=== PATIENT | male | born 1995 | race African-American/Black ===

== ENCOUNTER 2019-01-24 19:24 | Inpatient (IN) | payer OTHER, SELFPAY ==
[~2019-01-24 19:24] MED LIST: ISOVUE-370 76%-LOCM 1 ML ONE
[2019-01-24 20:49] LABS: #Basophils 0.1 thou/uL (0.0-0.2); #Eosinphils 0.1 thou/uL (0.0-0.7); #Lymphocytes 2.4 thou/uL (1.20-3.40); #Monocytes 0.6 thou/uL (0.11-0.59); #Neutrophils 4.2 thou/uL (1.40-6.50); %Basophils 1.4 % (0.0-1.0); %Eosinophils 0.9 % (0.0-10.0); %Monocytes 7.7 % (0.0-10.0); Hemoglobin 14.6 g/dL (14.0-18.0); Mean Corpuscular HGB CONC 32.8 g/dL (32.0-36.0); Mean Platelet Volume 8.7 fL (7.4-10.4); Platelet Count 169 thou/uL (130-400); RBC Distribution Width 12.7 % (11.5-14.5); Red Blood Cell (RBC) Count 4.43 mill/uL (4.70-6.10); White Blood Cell (WBC) Count 7.4 thou/uL (4.8-10.8)
--- NOTE | 2019-01-24 20:52 | RAD ---
EXAM: Single view of the chest HISTORY: Shortness of breath COMPARISON: None FINDINGS: Single view of the chest shows an enlarged cardiomediastinal silhouette. There is no eviden ce of consolidation, mass, or pleural effusion. The bones are unremarkable. IMPRESSION: Cardiomegaly
[2019-01-24 21:17] LABS: ALT (SGPT) 34 U/L (8-55); AST (SGOT) 28 U/L (5-34); Albumin 3.7 g/dL (3.5-5.0); Alkaline Phosphatase 59 U/L (40-110); Anion Gap 13 mmol/L (10-20); BUN (Urea Nitrogen) 15 mg/dL (8.9-20.6); Bilirubin, Total 4.4 mg/dL (0.2-1.2); Calc. Creatinine Clearance 0 mL/min (70-130); Calcium 9.1 mg/dL (7.8-10.44); Carbon Dioxide 27 mmol/L (22-29); Chloride 104 mmol/L (98-107); Estimated GFR-MDRD 74; Globulin 2.7 g/dL (2.4-3.5); Glucose 105 mg/dL (70-105); Potassium 3.8 mmol/L (3.5-5.1); Protein, Total 6.4 g/dL (6.0-8.3); Sodium 140 mmol/L (136-145)
[2019-01-24 21:37] LABS: CKMB 1.9 ng/mL (0-6.6)
[2019-01-24] MEDS ORDERED: Furosemide 40 MG/4 ML VIAL ONE (21:41)
--- NOTE | 2019-01-24 22:35 | CT ---
EXAM: CTA of the chest HISTORY: Shortness of breath COMPARISON: None TECHNIQUE: Multiple contiguous axial images were obtained a CTA of the chest with contrast per pulmon zack embolism protocol. 3-D oblique MIP reformats and direct coronal reformats were performed. FINDINGS: This exam is limited secondary to poor [id number] ratio from the patient's large body habitus. HEART: Normal in size without focal cardiac abnormality. PULMONARY ARTERIES: Normal in caliber without filling defects to suggest pulmonary emboli. MEDIASTINUM: No hilar or mediastinal lymphadenopathy. LUNGS: No focal infiltrates or masses. PLEURAL SPACE: Small right pleural effusion. No pneumothorax. CHEST WALL SOFT TISSUES: Unremarkable VISUALIZED OSSEOUS STRUCTURES: Unremarkable VISUALIZED SUBDIAPHRAGMATIC STRUCTURES: Unremarkable IMPRESSION: 1. No evidence of pulmonary thromboembolism 2. Small right pleural effusion
[2019-01-25 00:48] LABS: CKMB 1.5 ng/mL (0-6.6)
[2019-01-25] MEDS ORDERED: Nitroglycerin 2% Ointment 1 INCH/1 GM Packet ONE (00:48)
[2019-01-25] MEDS ORDERED: Nitroglycerin 2% Ointment 1 INCH/1 GM Packet TOP SCH (01:00)
[2019-01-25] MEDS ORDERED: Aspirin 325 MG TAB ONE (01:16)
[2019-01-25 02:53] VITALS: BMI 70.4
[2019-01-25 03:35] LABS: Troponin I 0.141 ng/mL (< 0.028)
[2019-01-25 07:16] LABS: ALT (SGPT) 25 U/L (8-55); AST (SGOT) 18 U/L (5-34); Albumin 3.3 g/dL (3.5-5.0); Alkaline Phosphatase 50 U/L (40-110); Anion Gap 11 mmol/L (10-20); BUN (Urea Nitrogen) 14 mg/dL (8.9-20.6); Bilirubin, Total 3.7 mg/dL (0.2-1.2); Calc. Creatinine Clearance 244 mL/min (70-130); Calcium 8.9 mg/dL (7.8-10.44); Carbon Dioxide 33 mmol/L (22-29); Chloride 103 mmol/L (98-107); Estimated GFR-MDRD Greater than 90; Globulin 2.2 g/dL (2.4-3.5); Glucose 87 mg/dL (70-105); Potassium 3.5 mmol/L (3.5-5.1); Protein, Total 5.5 g/dL (6.0-8.3); Sodium 143 mmol/L (136-145)
[2019-01-25] MEDS ORDERED: Sodium Chloride 0.9% 10 ML ONE (08:48)
[2019-01-25] MEDS ORDERED: Ondansetron PF 4 MG/2 ML Vial IVP PRN (09:32)
[2019-01-25] MEDS ORDERED: Bisacodyl 10 MG SUPP PR PRN (09:32)
[2019-01-25] MEDS ORDERED: Calcium Carbonate 500 MG ChewTAB PO PRN (09:32)
[2019-01-25] MEDS ORDERED: Senokot S 8.6-50 MG TAB PO PRN (09:32)
[2019-01-25] MEDS ORDERED: Acetaminophen 325 MG TAB PO PRN (09:32)
[2019-01-25] MEDS ORDERED: Ondansetron ODT 4 MG TAB PO PRN (09:32)
[2019-01-25] MEDS ORDERED: Enoxaparin Sodium 40 MG/0.4 ML SYRINGE SC SCH (09:45)
[2019-01-25] MEDS ORDERED: Furosemide 20 MG/2 ML VIAL SLOW IVP SCH (09:45)
[2019-01-25] MEDS ORDERED: Lisinopril 10 MG TAB PO SCH (09:45)
--- NOTE | 2019-01-25 10:22 | HP ---
PRIMARY CARE PHYSICIAN: [facility]. CHIEF COMPLAINT: Worsening shortness of breath. HISTORY OF PRESENT ILLNESS: A 23-year-old male, morbidly obese, with known history of CHF, who presents to the hospital with worsening shortness of breath as well as increasing swelling of the abdomen associated with orthopnea. The patient also reported that he has poor exercise tolerance and shortness of breath gets worse with exertion. He denied chest pain, cough, fever, dysuria, hematuria, nausea, vomiting, change in mental status, or change in bowel habits. The patient admitted that mom reported he is nauseous with occasional apneic spells. The patient recently relocated from [place] and was off his medication for some time and recently got it refilled from [facility] and has been compliant with it, but symptoms progressively worsened. PAST MEDICAL HISTORY: 1. CHF. 2. Morbid obesity. 3. Hypertension. PAST SURGICAL HISTORY: None. FAMILY HISTORY: Positive for CHF in mother. Father at early ages when patient was 2, hence he does not know much about his father. SOCIAL HISTORY: The patient recently relocated to this area from [place]. He lives with mother. Smokes Black and Mild cigars as well as marijuana, but denied cigarette smoking. Admitted to occasional alcohol use. ALLERGIES: REPORTS ALLERGIC REACTION TO SEAFOOD, BUT DENIED ANY REACTION TO ANY MEDICATION. HOME MEDICATIONS: 1. Lasix 40 mg p.o. b.i.d. 2. Lisinopril 20 mg p.o. daily. REVIEW OF SYSTEMS: 12-point review of system performed was negative other than pertinent positives and negatives. PHYSICAL EXAMINATION: VITAL SIGNS: Temperature 99, pulse 97, respiratory rate 20, SpO2 92 on 1 L nasal cannula, blood pressure is 167/101. GENERAL: Morbidly obese male, in mild respiratory distress. Afebrile. Anicteric. Acyanotic. HEENT: Normocephalic, atraumatic. Oral mucosa is moist. NECK: Short thick neck with excess subcutaneous tissue. No obvious JVD or masses appreciated. CARDIOVASCULAR: Regular rhythm and rate with normal heart sounds 1 and 2. No obvious murmur was appreciated. RESPIRATORY: Fair air entry bilateral with no obvious crackle or rhonchi. Air entry however is decreased at both bases. There is no use of accessory muscles. GI: Morbidly obese with mild pannus and edema of the lower abdominal wall. EXTREMITIES: Grossly normal looking atraumatic with no erythema. Mild right leg edema noted. INDEPENDENT JEWELER: Conscious, alert, oriented x3 with appropriate mental status. Cranial nerves 2 through 12 are grossly intact. The patient moves all extremities. DIAGNOSTIC DATA: CBC on January 24 showed WBC count of 7.4, hemoglobin of 14.6, platelet of 169, MCV of 101. CMP today showed sodium 143, potassium 3.5, chloride 103 CO2 of 33, BUN 14, creatinine 1.19, glucose 87, calcium 8.9. Total bilirubin 3.7, AST 18, ALT 25, alkaline phosphatase 50, total protein 5.5, albumin 3.3, globulin 2.2. Magnesium is 2.0. Cardiac markers showed BNP on presentation of 2219 with initial troponin of 0.164. CK-MB on presentation was 1.9. EKG on presentation showed sinus tachycardia with rate of 108. Nonspecific T-wave and ST-segment changes were noted. IMAGING STUDIES: Chest x-ray showed cardiomegaly with no evidence of consolidation, mass or pleural effusion. CT angio chest with and without contrast showed no pulmonary embolism. Small right pleural effusions were noted. Lungs were free of infiltrates or masses. ASSESSMENT: 1. Acute respiratory insufficiency. 2. Acute congestive heart failure of unclear type. 3. Morbid obesity. 4. Possible obstructive sleep apnea with pulmonary hypertension. 5. Hyperbilirubinemia of unclear etiology. Liver enzymes otherwise were unremarkable. 6. Abdominal distention/edema. 7. Hypertension. PLAN: 1. We will continue diuretic therapy with Lasix. 2. We will increase lisinopril to 40 mg p.o. daily to get better blood pressure control. 3. We will consult Cardiology given elevated troponin and cardiomegaly. 4. We will also get ultrasound of the abdomen to evaluate the liver given hyperbilirubinemia. 5. We will monitor intake and output as well as renal function and electrolytes and address as needed. 6. Code status full code. Mother is the surrogate decision maker. Further treatment to follow depending on hospital course. Job ID: [id number]
[2019-01-25 13:50] LABS: Bacteria/HPF None Seen HPF (None Seen); Bilirubin Negative (Negative); Blood, Urine Negative (Negative); Clarity Clear (Clear); Glucose, Urine (Dipstick) Normal (Negative); Leukocyte Negative Leu/uL (Negative); Nitrite Negative (Negative); Protein, Urine (Dipstick) Negative (Neg-Trace); RBC/HPF 0-3 HPF (0-3); Squamous Epithelial None Seen HPF (0-3); WBC/HPF 0-3 HPF (0-3)
[2019-01-25] MEDS: Furosemide 40 MG/4 ML VIAL SLOW IVP SCH (16:15)
[2019-01-25 18:51] LABS: Amphetamine Not Detected (NotDetected); Barbiturates Screen Not Detected (NotDetected); Benzodiazepine Screen Not Detected (NotDetected); Cocaine Metabolite Screen Not Detected (NotDetected); Medtox Control Line Valid? VALID (VALID); Medtox Reader # READER 4; Methadone Not Detected (NotDetected); Methamphetamine Not Detected (NotDetected); Opiate Screen Not Detected (NotDetected); Oxycodone Screen Not Detected (NotDetected); Phencyclidine (PCP) Not Detected (NotDetected); THC/Cannabinoid Screen Not Detected (NotDetected); Tricyclic Screen Not Detected (NotDetected)
[2019-01-25] MEDS: Famotidine 20 MG TAB PO SCH (20:21)
[2019-01-25] MEDS ORDERED: FLU VACC QS2019-20(6MOS UP)/PF 60 MCG/0.5 ML SYRINGE IM ONE (21:00)
[2019-01-25] MEDS ORDERED: Carvedilol 3.125 MG TAB PO SCH (21:00)
[2019-01-26] MEDS: Furosemide 40 MG/4 ML VIAL SLOW IVP SCH ×2 (06:11→14:32)
[2019-01-26 07:59] LABS: #Basophils 0.1 thou/uL (0.0-0.2); #Eosinphils 0.1 thou/uL (0.0-0.7); #Lymphocytes 1.9 thou/uL (1.20-3.40); #Monocytes 0.5 thou/uL (0.11-0.59); #Neutrophils 3.6 thou/uL (1.40-6.50); %Basophils 0.8 % (0.0-1.0); %Eosinophils 2.4 % (0.0-10.0); %Monocytes 8.4 % (0.0-10.0); %Neutrophils 57.4 % (42.0-75.0); Hemoglobin 14.7 g/dL (14.0-18.0); Mean Corpuscular HGB CONC 32.8 g/dL (32.0-36.0); Mean Corpuscular Hemoglobin 33.3 pg (27.0-31.0); Mean Platelet Volume 8.8 fL (7.4-10.4); Platelet Count 142 thou/uL (130-400); RBC Distribution Width 12.8 % (11.5-14.5); White Blood Cell (WBC) Count 6.2 thou/uL (4.8-10.8)
[2019-01-26 08:07] LABS: Albumin 3.8 g/dL (3.5-5.0); Anion Gap 15 mmol/L (10-20); BUN (Urea Nitrogen) 14 mg/dL (8.9-20.6); BUN/Creatinine Ratio 14.29; Calc. Creatinine Clearance 291 mL/min (70-130); Calcium 9.1 mg/dL (7.8-10.44); Carbon Dioxide 25 mmol/L (22-29); Chloride 105 mmol/L (98-107); Estimated GFR-MDRD Greater than 90; Glucose 90 mg/dL (70-105); Phosphorus 4.7 mg/dL (2.3-4.7); Potassium 3.7 mmol/L (3.5-5.1); Sodium 141 mmol/L (136-145)
[2019-01-26] MEDS ORDERED: Carvedilol 3.125 MG TAB PO SCH (09:00)
--- NOTE | 2019-01-26 09:02 | ULT ---
ULTRASOUND ABDOMEN LIMITED: (RIGHT UPPER QUADRANT) DATE: 01/26/2019 HISTORY: 23 year old male with elevated bilirubin and abdominal distention. FINDINGS: Study limited by body habitus. Gallbladder:Not excessively distended. Normal mural thickness. No gallstone identified. Common duct: 2 mm. Liver:Enlarged. Normal parenchymal echogenicity where visualized. Much of parenchyma especially right lobe poorly visualized because of body habitus. Pancreas:Poorly visualized. Right kidney:No hydronephrosis IMPRESSION: 1) hepatomegaly. 2) no evidence of biliary obstruction.
[2019-01-26] MEDS: Aspirin Chewable 81 MG TAB PO SCH (10:09)
[2019-01-26] MEDS: Famotidine 20 MG TAB PO SCH ×2 (10:09→21:23)
[2019-01-26] MEDS: Lisinopril 20 MG TAB PO SCH (10:10)
[2019-01-26] MEDS: Carvedilol 25 MG TAB PO SCH ×2 (10:10→21:23)
[2019-01-26] MEDS: Enoxaparin Sodium 40 MG/0.4 ML SYRINGE SC SCH (10:11)
--- NOTE | 2019-01-26 13:06 | CON ---
DATE OF CONSULTATION: HISTORY OF PRESENT ILLNESS: Nuno Uriostegui is a 23-year-old white male with history of hypertension, who was admitted with increased shortness of breath, increased peripheral edema. To me, he states he has never been told that he had a weak heart or heart failure, just hypertension. He was apparently out of his lisinopril and furosemide for 2 days, but he never could get rid of the fluid after restarting the medications. He denied any chest discomfort, cough, or fever. He states that he is pretty sure he has sleep apnea, but has never undergone a study and does not have a CPAP machine. PAST MEDICAL HISTORY: Hypertension, morbid obesity. He denies any history of hyperlipidemia or diabetes. PAST SURGICAL HISTORY: None. MEDICATIONS: 1. Furosemide 40 b.i.d. 2. Lisinopril 20 daily. SOCIAL HISTORY: He moved here from [place]. He smokes marijuana and occasionally drinks. A urine drug screen on admission revealed no drugs. ALLERGIES: WITH SEAFOOD, HE DEVELOPS LARYNGEAL EDEMA. FAMILY HISTORY: Father at a fairly young age, but he is not certain why. REVIEW OF SYSTEMS: Twelve-point review of systems unremarkable. PHYSICAL EXAMINATION: VITAL SIGNS: Blood pressure 155/98, pulse 95. HEENT: PERRL. NECK: Supple. CHEST: Reveals distant breath sounds. CARDIOVASCULAR: S1 and S2 normal without any S3, S4, or murmurs. ABDOMEN: Normal bowel sounds without tenderness. Abdomen is massively obese. EXTREMITIES: Revealed trace pretibial edema. NEUROLOGIC: Grossly intact. LABORATORY AND DIAGNOSTIC DATA: EKG reveals sinus tachycardia on admission with left atrial enlargement, left ventricular hypertrophy, nonspecific T-wave changes. Urine drug screen is negative. Hemoglobin 14.7, hematocrit 44.7, white count 6200, and platelets 142,000. Sodium 141, potassium 3.7, chloride 105, carbon dioxide 25, BUN 14, and creatinine 0.98. Troponin I is 0.164. BNP 2219. Echocardiogram revealed study to be technically difficult. There was severe left ventricular dysfunction with ejection fraction of 15% to 20%, moderate left ventricular and right ventricular enlargement, severe left atrial enlargement, moderate mitral regurgitation, mild tricuspid regurgitation, moderate pulmonic insufficiency. IMPRESSION: 1. Severe dilated cardiomyopathy, probably nonischemic. The patient denies ever being told that he had a weak heart in the past. 2. Acute systolic heart failure. 3. Fourteen beats of nonsustained ventricular tachycardia, rate of approximately 160 per minute, asymptomatic. 4. Hypertension. 5. Morbid obesity. 6. Probable obstructive sleep apnea. 7. Marijuana use. PLAN: The patient currently is on excellent regimen of high-dose carvedilol, lisinopril, and intravenous furosemide. He continues to diurese well and states that his breathing has significantly improved. Since this apparently is the first time that he has been diagnosed with severe cardiomyopathy, he will need repeat echo in 3 months in placement of ICD if his EF continues to remain less than 35%. In the meantime, I will have LifeVest to evaluate the patient for use of an external defibrillator over the next 3 months. Job ID: [id number] [facility]
--- NOTE | 2019-01-26 18:28 | PDOC.HOSPP ---
- Subjective Encounter Date: 01/26/19 Encounter Time: 11:26 Subjective: 23 y/o morbidly obese male with known history of CHF admitted with worsening SOB. Feeling better. No new problem - Objective Vital Signs & Weight: Vital Signs (12 hours) Temp Pulse Resp BP BP Pulse Ox 01/26/19 15:55 97.6 F 77 14 116/58 L 95 01/26/19 12:40 97.9 F 87 14 114/64 92 L 01/26/19 08:00 97.8 F 89 30 H 132/81 95 Weight Weight 390 lb 2 oz I&O: 01/25/19 01/26/19 01/27/19 06:59 06:59 06:59 Intake Total 1320 Output Total 3155 Balance -1835 Result Diagrams: 01/26/19 07:45 01/26/19 07:45 Hospitalist ROS - Medication Medications: Active Medications Generic Name Dose Route Start Last Admin Trade Name Freq PRN Reason Stop Dose Admin Aspirin 81 mg 01/26/19 09:00 01/26/19 10:09 Aspirin Chewable PO 81 mg DAILY ANJEL Administration Carvedilol 25 mg 01/26/19 09:00 01/26/19 10:10 Coreg PO 25 mg BID ANJEL Administration Enoxaparin Sodium 40 mg 01/26/19 09:00 01/26/19 10:11 Lovenox SC 40 mg 0900 ANJEL Administration Famotidine 20 mg 01/25/19 21:00 01/26/19 10:09 Pepcid PO 20 mg BID ANJEL Administration Furosemide 40 mg 01/25/19 14:00 01/26/19 14:32 Lasix SLOW IVP 40 mg 0600,1400 ANJEL Administration Lisinopril 40 mg 01/26/19 09:00 01/26/19 10:10 Zestril PO 40 mg DAILY ANJEL Administration Sodium Chloride 10 ml 01/25/19 21:00 01/26/19 10:11 Flush - Normal Saline IVF 10 ml Q12HR ANJEL Administration Sodium Chloride 10 ml 01/25/19 09:41 01/25/19 16:15 Flush - Normal Saline IVF 10 ml PRN PRN Administration Saline Flush - Exam General Appearance: awake alert General - other findings: morbidly obese Eye: anicteric sclera ENT: normocephalic atraumatic, moist mucosa Neck: symmetric Heart: RRR Respiratory: no wheezes, no ronchi, normal chest expansion, no tachypnea Gastrointestinal: soft, non-tender, normal bowel sounds Gastrointestinal - other findings: morbidly obese Extremities: no cyanosis, no edema Neurological: cranial nerve grossly intact, no focal deficits Psychiatric: normal affect, A&O x 3 Hosp A/P (1) Acute on chronic systolic (congestive) heart failure Code(s): I50.23 - ACUTE ON CHRONIC SYSTOLIC (CONGESTIVE) HEART FAILURE Status : Acute (2) Acute respiratory insufficiency Code(s): R06.89 - OTHER ABNORMALITIES OF BREATHING Status: Acute (3) Morbid obesity with BMI of 60.0-69.9, adult Code(s): E66.01 - MORBID (SEVERE) OBESITY DUE TO EXCESS CALORIES; Z68.44 - BODY MASS INDEX (BMI) 60.0-69.9, ADULT Status: Acute (4) Cardiomyopathy Code(s): I42.9 - CARDIOMYOPATHY, UNSPECIFIED Status: Acute (5) Moderate mitral regurgitation Code(s): I34.0 - NONRHEUMATIC MITRAL (VALVE) INSUFFICIENCY Status: Acute (6) Moderate tricuspid regurgitation Code(s): I07.1 - RHEUMATIC TRICUSPID INSUFFICIENCY Status: Acute (7) ERICK (obstructive sleep apnea) Code(s): G47.33 - OBSTRUCTIVE SLEEP APNEA (ADULT) (PEDIATRIC) Status: Acute (8) Hyperbilirubinemia Code(s): E80.6 - OTHER DISORDERS OF BILIRUBIN METABOLISM Status: Acute (9) HTN (hypertension) Code(s): I10 - ESSENTIAL (PRIMARY) HYPERTENSION Status: Acute - Plan Continue diuretics Continue lisinopril and coreg Will add spironolactone tomorrow Repeat CMP to check bilirubin level. Liver US was unremarkable Increase activity. Other treatments as per cardiology
[2019-01-27 05:37] LABS: ALT (SGPT) 22 U/L (8-55); AST (SGOT) 15 U/L (5-34); Albumin 3.4 g/dL (3.5-5.0); Alkaline Phosphatase 47 U/L (40-110); Anion Gap 14 mmol/L (10-20); BUN (Urea Nitrogen) 18 mg/dL (8.9-20.6); Bilirubin, Total 3.4 mg/dL (0.2-1.2); Calc. Creatinine Clearance 234 mL/min (70-130); Calcium 8.9 mg/dL (7.8-10.44); Carbon Dioxide 30 mmol/L (22-29); Chloride 103 mmol/L (98-107); Estimated GFR-MDRD 88; Globulin 2.3 g/dL (2.4-3.5); Glucose 96 mg/dL (70-105); Potassium 3.7 mmol/L (3.5-5.1); Protein, Total 5.7 g/dL (6.0-8.3); Sodium 143 mmol/L (136-145)
[2019-01-27] MEDS: Furosemide 40 MG/4 ML VIAL SLOW IVP SCH (05:51)
[2019-01-27] MEDS: Enoxaparin Sodium 40 MG/0.4 ML SYRINGE SC SCH (08:57)
[2019-01-27] MEDS: Aspirin Chewable 81 MG TAB PO SCH (08:57)
[2019-01-27] MEDS: Lisinopril 20 MG TAB PO SCH (08:58)
[2019-01-27] MEDS: Spironolactone 25 MG TAB PO SCH (08:58)
[2019-01-27] MEDS: Carvedilol 25 MG TAB PO SCH ×2 (08:58→21:33)
[2019-01-27] MEDS: Furosemide 40 MG TAB PO SCH ×2 (08:58→15:11)
[2019-01-27] MEDS: Famotidine 20 MG TAB PO SCH ×2 (08:58→21:33)
[2019-01-27] MEDS ORDERED: Furosemide 20 MG TAB PO SCH (09:00)
--- NOTE | 2019-01-27 12:37 | PDOC.HOSPP ---
- Subjective Encounter Date: 01/27/19 Encounter Time: 08:35 Subjective: 23 y/o morbidly obese male with known history of CHF admitted with worsening SOB. Feeling better. No new problem. Denied fever, leg edema, dysuria or dizziness. - Objective Vital Signs & Weight: Vital Signs (12 hours) Temp Pulse Resp BP BP Pulse Ox 01/27/19 08:40 97.7 F 82 20 112/56 L 92 L 01/27/19 04:00 97.4 F L 72 18 109/58 L 92 L Weight Weight 383 lb 3 oz I&O: 01/26/19 01/27/19 01/28/19 06:59 06:59 06:59 Intake Total 1320 1280 Output Total 3150 4100 Balance -1835 -2160 Result Diagrams: 01/26/19 07:45 01/27/19 05:04 Hospitalist ROS - Medication Medications: Active Medications Generic Name Dose Route Start Last Admin Trade Name Freq PRN Reason Stop Dose Admin Aspirin 81 mg 01/26/19 09:00 01/27/19 08:57 Aspirin Chewable PO 81 mg DAILY ANJEL Administration Carvedilol 25 mg 01/26/19 09:00 01/27/19 08:58 Coreg PO 25 mg BID ANJEL Administration Enoxaparin Sodium 40 mg 01/26/19 09:00 01/27/19 08:57 Lovenox SC 40 mg 0900 ANJEL Administration Famotidine 20 mg 01/25/19 21:00 01/27/19 08:58 Pepcid PO 20 mg BID ANJEL Administration Furosemide 40 mg 01/27/19 09:00 01/27/19 08:58 Lasix PO 40 mg 0900,1400 ANJEL Administration Lisinopril 40 mg 01/26/19 09:00 01/27/19 08:58 Zestril PO 40 mg DAILY ANJEL Administration Sodium Chloride 10 ml 01/25/19 21:00 01/27/19 08:59 Flush - Normal Saline IVF 10 ml Q12HR ANJEL Administration Sodium Chloride 10 ml 01/25/19 09:41 01/25/19 16:15 Flush - Normal Saline IVF 10 ml PRN PRN Administration Saline Flush Spironolactone 50 mg 01/27/19 09:00 01/27/19 08:58 Aldactone PO 50 mg DAILY ANJEL Administration - Exam General Appearance: awake alert Eye: PERRL ENT: normocephalic atraumatic Neck: supple, symmetric, no JVD Heart: RRR Respiratory: no wheezes, no rales, no ronchi, normal chest expansion Gastrointestinal: soft, non-tender, non-distended, normal bowel sounds Gastrointestinal - other findings: morbidly obese with lower abdominal wall edema Extremities: no cyanosis, no edema Neurological: cranial nerve grossly intact, no focal deficits Psychiatric: normal affect, A&O x 3 Hosp A/P (1) Acute on chronic systolic (congestive) heart failure Code(s): I50.23 - ACUTE ON CHRONIC SYSTOLIC (CONGESTIVE) HEART FAILURE Status : Acute (2) Acute respiratory insufficiency Code(s): R06.89 - OTHER ABNORMALITIES OF BREATHING Status: Acute (3) Morbid obesity with BMI of 60.0-69.9, adult Code(s): E66.01 - MORBID (SEVERE) OBESITY DUE TO EXCESS CALORIES; Z68.44 - BODY MASS INDEX (BMI) 60.0-69.9, ADULT Status: Acute (4) Cardiomyopathy Code(s): I42.9 - CARDIOMYOPATHY, UNSPECIFIED Status: Acute (5) Moderate mitral regurgitation Code(s): I34.0 - NONRHEUMATIC MITRAL (VALVE) INSUFFICIENCY Status: Acute (6) Moderate tricuspid regurgitation Code(s): I07.1 - RHEUMATIC TRICUSPID INSUFFICIENCY Status: Acute (7) ERICK (obstructive sleep apnea) Code(s): G47.33 - OBSTRUCTIVE SLEEP APNEA (ADULT) (PEDIATRIC) Status: Acute (8) Hyperbilirubinemia Code(s): E80.6 - OTHER DISORDERS OF BILIRUBIN METABOLISM Status: Acute (9) HTN (hypertension) Code(s): I10 - ESSENTIAL (PRIMARY) HYPERTENSION Status: Acute - Plan Continue diuretics. Change lasix to oral. Start spironolactone Continue lisinopril and coreg Repeat CMP to check bilirubin level. Liver US was unremarkable Increase activity. Other treatments as per cardiology Possible discharge once lifevest arrangement is concluded
[2019-01-28 06:09] LABS: ALT (SGPT) 22 U/L (8-55); AST (SGOT) 15 U/L (5-34); Albumin 3.4 g/dL (3.5-5.0); Alkaline Phosphatase 48 U/L (40-110); Anion Gap 13 mmol/L (10-20); BUN (Urea Nitrogen) 19 mg/dL (8.9-20.6); Bilirubin, Total 2.8 mg/dL (0.2-1.2); Calc. Creatinine Clearance 257 mL/min (70-130); Carbon Dioxide 28 mmol/L (22-29); Chloride 105 mmol/L (98-107); Estimated GFR-MDRD Greater than 90; Globulin 2.4 g/dL (2.4-3.5); Glucose 85 mg/dL (70-105); Potassium 3.4 mmol/L (3.5-5.1); Protein, Total 5.8 g/dL (6.0-8.3); Sodium 143 mmol/L (136-145)
[2019-01-28] MEDS ORDERED: Potassium Chloride 20 MEQ TAB PO SCH (07:45)
[2019-01-28] MEDS: Famotidine 20 MG TAB PO SCH (10:06)
[2019-01-28] MEDS: Furosemide 40 MG TAB PO SCH (10:06)
[2019-01-28] MEDS: Carvedilol 25 MG TAB PO SCH (10:06)
[2019-01-28] MEDS: Spironolactone 25 MG TAB PO SCH (10:07)
[2019-01-28] MEDS: Lisinopril 20 MG TAB PO SCH (10:07)
[2019-01-28] MEDS: Aspirin Chewable 81 MG TAB PO SCH (10:07)
[2019-01-28] MEDS: Enoxaparin Sodium 40 MG/0.4 ML SYRINGE SC SCH (10:10)
--- NOTE | 2019-01-28 12:00 | DIS ---
DATE OF ADMISSION: 01/25/2019 DATE OF DISCHARGE: 01/28/2019 PRIMARY CARE PROVIDER: [facility]. DISCHARGE DIAGNOSES: 1. Acute on chronic systolic heart failure. 2. Cardiomyopathy with ejection fraction of 15% to 20%. 3. Acute respiratory insufficiency. 4. Morbid obesity with BMI of 60 to 69. 5. Moderate mitral regurgitation. 6. Moderate tricuspid regurgitation. 7. Presumed obstructive sleep apnea. 8. Hyperbilirubinemia. 9. Hypertension. 10. Nonsustained ventricular tachycardia. 11. Hypokalemia. CONSULT: Cardiology. HOSPITAL COURSE: A 23-year-old morbidly obese male with history of CHF, admitted with worsening shortness of breath as well as increasing abdominal swelling and lower extremity edema. Impression of CHF was better. The patient was started on IV diuretics, oxygen supplementation. The patient also was continued on antihypertensives including lisinopril. Further evaluation with echocardiogram showed severe cardiomyopathy with EF of 15% to 20% as well as moderate tricuspid and mitral regurgitation. Cardiology consult was obtained and medications were optimized. The patient was to get a LifeVest, but due to his body habitus, he could not be fitted. AICD placement was considered, but given that he has just been seen for the first time and has history of noncompliance, he could not get AICD at this time. He is to be managed medically in the next 3 months and re-evaluated and if EF is still very low, he will then be a candidate for AICD placement. Of note, the patient had some episodes of nonsustained ventricular tachycardia, which resolved spontaneously without any symptoms. Oxygen was weaned off and the patient remained stable and was subsequently discharged home. He is to follow up at the outpatient cardiac rehab unit. PHYSICAL EXAMINATION: VITAL SIGNS: Temperature 97.6, pulse 77, respiratory rate 17, SpO2 of 96% on room air, and blood pressure is 136/83. GENERAL: Morbidly obese male, in no obvious distress. Afebrile. Anicteric. Acyanotic. HEENT: Normocephalic, atraumatic. Oral mucosa is moist. NECK: Short thick neck with excess soft tissue. No obvious JVD was appreciated. CARDIOVASCULAR: Regular rhythm and rate with normal heart sounds 1 and 2. Soft systolic murmur noted. RESPIRATORY: Good air entry bilaterally with no crackle or rhonchi or use of accessory muscles. GASTROINTESTINAL: Morbidly obese, soft, nontender, and nondistended with normal bowel sounds. EXTREMITIES: Grossly normal looking, atraumatic with no edema or erythema. CENTRAL NERVOUS SYSTEM: Conscious, alert, oriented x3 with appropriate mental status. Cranial nerves II through XII are grossly intact. The patient is ambulant. DISCHARGE DISPOSITION: Home. DISCHARGE CONDITION: Improved. FOLLOWUP: 1. With PCP in 7 days. 2. With cardiopulmonary rehab. The patient is to call for appointment. 3. With Cardiology in 2 to 3 weeks. DISCHARGE MEDICATIONS: 1. Aspirin 81 mg p.o. daily. 2. Carvedilol 25 mg p.o. b.i.d. 3. Furosemide 40 mg p.o. b.i.d. 4. Lisinopril 40 mg p.o. daily. 5. Spironolactone 50 mg p.o. daily. TIME SPENT: This discharge took more than 33 minutes. Job ID: [id number]
[2019-01-28 13:11] VITALS: TEMP 97.2
[2019-01-28 14:47] VITALS: BP 111/69
--- NOTE | 2019-01-30 08:53 | PQF ---
EDUARDO JUDD OBI, CHIZOBA C [id number] CLINICAL DOCUMENTATION CLARIFICATION FORM: POST DISCHARGE Addendum to original discharge summary date: ____ Late entry note date: __ DATE: 01/28/2019 ATTN:RACHEAL PRINGLE Please exercise your independent, professional judgment in responding to the clarification form. Clinical indicators are provided on the bottom of this form for your review Please check appropriate box(s): [ ] Acute Respiratory Failure: [ ] with Hypoxia[ ] with Hypercapnia [ ] Acute On Chronic Respiratory Failure: [ ] with Hypoxia [ ] with Hypercapnia [ ] Acute Respiratory Failure due to: (etiology) [ ] ARDS (Acute Respiratory Distress Syndrome) [ ] Chronic Respiratory Failure only [ ] with Hypoxia [ ] with Hypercapnia [ ] Hypoxia [ ] Other diagnosis [ ] Unable to determine In addition, please specify: Present on Admission (POA): [ ] Yes [ ] No [ ] Unable to determine For continuity of documentation, please document condition throughout progress notes and discharge summary. Thank You. CLINICAL INDICATORS - SIGNS / SYMPTOMS / LABS [id number] in ED on 01/25 by Morteza Moss air entry bilateral,Air entry however is decreased at both base-Documented in H&P on 01/25 by Racheal Pringle MD Acute respiratory insufficiency-Documented in H&P on 01/25 by Racheal Pringle MD [id number] in Hospitalist progress note on 01/26 by Racheal Pringle MD Obstructive sleep apnea--Documented in Hospitalist progress note on 01/26 by Racheal Pringle MD Acute on chronic systolic congestive heart failure-Documented in Hospitalist progress note on 01/26 by Racheal Pringle MD Pulse [id number] in Hospitalist progress note on 01/26 by Racheal Pringle MD Carbon [id number] in laboratory on 01/25 RISK FACTORS Acute on chronic systolic congestive heart failure-Documented in Hospitalist progress note on 01/26 by Racheal Pringle MD Obstructive sleep apnea--Documented in Hospitalist progress note on 01/26 by Racheal Pringle MD Cardiomyopathy-Documented in DS on 01/28 by Racheal Pringle MD TREATMENTS: O2 delivery methord-nasal cannula-Documented in vital signs Furosemide 20 mg IV-Documented in Medication snapshot (This form is maintained as a part of the permanent medical record) 2014 [email or web address], [employer]. All Rights Reserved [email or web address] [not provided] MTDD
== END 2019-01-28 13:30 | disposition home or self-care (01) | DRG 292 ==
LOC: ERS 19:24 → 2NO 01-25 01:17
PROVIDERS: ADMIT Internal Medicine; ATTEND Internal Medicine
DX: I11.0 Hypertensive heart disease with heart failure (principal); I47.2 Ventricular tachycardia; Z68.44 Body mass index [BMI] 60.0-69.9, adult; I50.23 Acute on chronic systolic (congestive) heart failure; R06.89 Other abnormalities of breathing; E66.01 Morbid (severe) obesity due to excess calories; G47.33 Obstructive sleep apnea (adult) (pediatric); E80.6 Other disorders of bilirubin metabolism; E87.6 Hypokalemia; I37.1 Nonrheumatic pulmonary valve insufficiency; F17.200 Nicotine dependence, unspecified, uncomplicated; I27.20 Pulmonary hypertension, unspecified; I42.0 Dilated cardiomyopathy; F12.90 Cannabis use, unspecified, uncomplicated; Z91.013 Allergy to seafood; Z82.49 Family history of ischemic heart disease and other diseases of the circulatory system
CPT/HCPCS: 36415; 71045; 71275; 76705; 80053; 80069; 80306; 81001; 82553; 83735; 83880; 84484; 85025; 93005; 93306; 93798; 96374; J1650; J1940; Q9966

== ENCOUNTER 2020-02-06 12:13 | Outpatient (CLI) | payer MEDICARE, MEDICAID ==
--- NOTE | 2020-02-06 12:45 | RAD ---
XR Foot Lt 3 View STANDARD History: Foot pain Comparison: None. Findings: Lisfranc interval is maintained. No acute displaced fracture or malalignment. Mild dorsal s oft tissue swelling of the midfoot. Old deltoid ligament injury. Impression: Dorsal soft tissue swelling of the midfoot without acute displaced fracture.
== END 2020-02-06 12:14 | disposition home or self-care (01) ==
LOC: BICRAD 12:13
PROVIDERS: ATTEND Internal Medicine
DX: M79.672 Pain in left foot (principal); M79.89 Other specified soft tissue disorders